=== PATIENT | male | born 1995 | race Caucasian/White ===

== ENCOUNTER 2020-11-16 18:11 | Emergency (ER) | payer BC ==
[~2020-11-16] VITALS: Ht 190.5 cm; Wt 83.9 kg
[2020-11-16] MEDS ORDERED: Acetaminophen 500mg (ES) tab ORAL ONE (18:30)
[2020-11-16] MEDS ORDERED: Methocarbamol 750mg tab ORAL ONE (18:30)
[2020-11-16] MEDS ORDERED: Bacitracin Oint UD TOPIC ONE (18:30)
[2020-11-16 18:48] VITALS: BP 140/78
--- NOTE | 2020-11-16 19:25 | NUR ---
ER DISCHARGE NOTE: Patient is cleared to be discharged per ERMD, pt is aox4, on room air, with stable vital signs. pt was given dc and prescription instructions, pt was able to verbalize understanding, pt id band removed without complications. pt is able to ambulate with steady gait. pt took all belongings.
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
[2020-11-16] MEDS ORDERED: ROBAXIN-500MG ORAL (19:35)
[2020-11-16] MEDS ORDERED: TYLENOL EXTRA500 MG ORAL (19:35)
[2020-11-16 19:45] VITALS: BP 135/72
--- NOTE | 2020-11-17 18:04 | Diagnostic Imaging Report ---
Indications:Trauma, pain Technique: Three or 4 views of the left elbow Comparison: None Findings: There is elevation of the anterior and posterior fat pads, indicative of a joint effusion. There is questionably slight irregularity of the anterolateral radial head neck junction. No definite fracture is evident otherwise. Impression: Very questionable irregularity of the anterolateral radial head neck junction, could indicate a nondisplaced fracture of real. There is a joint effusion, indicating a fracture is likely present
== END 2020-11-16 19:25 | disposition home or self-care (01) ==
LOC: EMR 19:00
DX: S52.125A Nondisplaced fracture of head of left radius, initial encounter for closed fracture (principal); W19.XXXA Unspecified fall, initial encounter; Y92.9 Unspecified place or not applicable
CPT/HCPCS: 29105; 99283